=== PATIENT | male | born 1960 | race Caucasian/White ===

== ENCOUNTER → 2021-08-10 12:10 | Outpatient (BNVA) | payer MEDICARE, MEDICAID, SELFPAY | PROVIDERS: Visit Provider Emergency Medicine | DX: J30.2 Other seasonal allergic rhinitis (principal); I10 Essential (primary) hypertension; R73.9 Hyperglycemia, unspecified; N40.1 Benign prostatic hyperplasia with lower urinary tract symptoms; R35.1 Nocturia; J44.9 Chronic obstructive pulmonary disease, unspecified | CPT/HCPCS: 80053; 80061; 83036; 83880; 85025; G0103 ==

== ENCOUNTER → 2021-10-20 11:10 | Outpatient (BNVA) | payer MEDICARE, MEDICAID, SELFPAY | PROVIDERS: Visit Provider Family Medicine | DX: I10 Essential (primary) hypertension (principal); E11.9 Type 2 diabetes mellitus without complications; R00.0 Tachycardia, unspecified; H60.92 Unspecified otitis externa, left ear; J44.9 Chronic obstructive pulmonary disease, unspecified; N40.1 Benign prostatic hyperplasia with lower urinary tract symptoms; R35.1 Nocturia; N52.9 Male erectile dysfunction, unspecified; H60.392 Other infective otitis externa, left ear; F17.200 Nicotine dependence, unspecified, uncomplicated; Z76.89 Persons encountering health services in other specified circumstances | CPT/HCPCS: 80048; 83036; 84443 ==

== ENCOUNTER → 2022-01-18 09:11 | Outpatient (BNVA) | payer MEDICARE, MEDICAID, SELFPAY | PROVIDERS: PCP Family Medicine; Visit Provider Family Medicine | DX: J44.1 Chronic obstructive pulmonary disease with (acute) exacerbation (principal); I10 Essential (primary) hypertension; R00.0 Tachycardia, unspecified; E11.9 Type 2 diabetes mellitus without complications | CPT/HCPCS: 80048; 82962; 83036 ==

== ENCOUNTER 2023-01-08 11:41 | Outpatient (CLI) | payer MEDICARE, MEDICAID, SELFPAY ==
--- NOTE | 2023-01-08 12:00 | CT_ITS ---
WS: [id number] LDCT LUNG CANCER SCREENING TECHNIQUE: Noncontrast CT of the chest with coronal and sagittal reformatted images. CLINICAL INFORMATION: F17.210 - Nicotine dependence, cigarettes, uncomplicated COMPARISON: None. DLP: 80.31 mGy.cm DIvol: Mean CTDIvol: 2.00 (mGy) All CT scans at [facility] use at least one of these dose optimization techniques: automat ed exposure control; mA and/or kV adjustment per patient size (includes targeted exams where dose is matched to clinical indication); or iterative reconstruction. FINDINGS: Pleural-based nodule LEFT upper lobe measuring 10 mm.Pleural-based nodule RIGHT upper lobe measuring 8 mm. Subsegmental atelectasis LEFT lower lobe. 6 mm nodule RIGHT upper lobe along the fissure Nodular RIGHT thyroid. Normal caliber thoracic aorta. Aortic calcification. Coronary calcification. N o axillary lymphadenopathy. A few enlarged mediastinal and parabronchial lymph nodes measuring up to 1.8 x 1.0 cm. These are nonspecific but may be reactive. Adrenal glands are normal. Cholelithiasis. Fatty atrophy of the pancreas. Thoracic curve. Anterior wedging in the midthoracic spine with endplate Schmorl's nodes. Anterior hyp ertrophic changes. Scattered calcified granulomas. Advanced chronic emphysematous changes. Interstiti al thickening with a few reticular opacities in both lungs. Slight bibasal atelectasis. Chronic eleva tion LEFT hemidiaphragm. Small esophageal hiatal hernia. IMPRESSION: 1. Cholelithiasis. This can be further evaluated with gallbladder ultrasound 2. A few enlarged anterior mediastinal and parabronchial lymph nodes nonspecific but may be reactive . Recommend 6-month chest CT follow-up. CT/CT lung screening [id number] LUNG-RADS: 2S-Benign Appearance or Behavior with Significant Findings FOLLOW UP: 6 Month LDCT
== END 2023-01-08 11:42 | disposition home or self-care (01) ==
LOC: RAD 11:41
PROVIDERS: PCP Family Medicine; Visit Provider Family Medicine
DX: Z12.2 Encounter for screening for malignant neoplasm of respiratory organs (principal); F17.210 Nicotine dependence, cigarettes, uncomplicated
CPT/HCPCS: 71271

== ENCOUNTER → 2023-01-24 14:08 | Outpatient (BNVA) | payer MEDICARE, MEDICAID, SELFPAY | PROVIDERS: PCP Family Medicine; Visit Provider Family Medicine | DX: E11.9 Type 2 diabetes mellitus without complications (principal); I10 Essential (primary) hypertension; J44.9 Chronic obstructive pulmonary disease, unspecified; E04.1 Nontoxic single thyroid nodule; Z12.5 Encounter for screening for malignant neoplasm of prostate | CPT/HCPCS: 80053; 80061; 83036; 84439; 84443; 84481; 85025; G0103 ==

== ENCOUNTER → 2023-07-25 12:44 | Outpatient (BNVA) | payer MEDICARE, MEDICAID, SELFPAY | PROVIDERS: PCP Family Medicine; Visit Provider Family Medicine | DX: E11.9 Type 2 diabetes mellitus without complications (principal); I10 Essential (primary) hypertension | CPT/HCPCS: 80053; 83036; 93005 ==

== ENCOUNTER → 2024-02-26 13:13 | Outpatient (BNVA) | payer MEDICARE, MEDICAID, SELFPAY | PROVIDERS: PCP Family Medicine; Visit Provider Family Medicine | DX: E11.9 Type 2 diabetes mellitus without complications (principal); E78.5 Hyperlipidemia, unspecified | CPT/HCPCS: 80053; 80061; 83036 ==

== ENCOUNTER → 2024-05-05 10:53 | Outpatient (BNVA) | payer MEDICARE, MEDICAID, SELFPAY | PROVIDERS: PCP Family Medicine; Visit Provider Nurse Practitioner | DX: N40.1 Benign prostatic hyperplasia with lower urinary tract symptoms (principal); R35.1 Nocturia | CPT/HCPCS: 81000; 87086 ==